=== PATIENT | male | born 1965 | race Caucasian/White ===

== ENCOUNTER 2017-12-11 09:23 | Emergency (ER) | END 2017-12-11 10:40 | disposition home or self-care (01) ==

== ENCOUNTER 2018-07-15 19:04 | Emergency (ER) | payer BC ==
[~2018-07-15] VITALS: Ht 165.1 cm; Wt 72.8 kg
[~2018-07-15 19:04] MED LIST: CYCL10TA7 PO; NAPR-985 PO; TRAM50TA2 PO
[2018-07-15 19:26] VITALS: Ht 165.1 cm; Wt 72.8 kg
[2018-07-15] MEDS ORDERED: SOD CHLORIDE 0.9% 1,000 ML IV STA (20:54)
[2018-07-15] MEDS ORDERED: FAMOTIDINE 20 MG INJ IV STA (20:54)
[2018-07-15] MEDS ORDERED: LIDOCAINE/MYLANTA 40 ML BTL PO STA (20:54)
[2018-07-15] MEDS ORDERED: ONDANSETRON 4 MG INJ IV STA (20:54)
[2018-07-15] MEDS ORDERED: morphine 2 MG INJ IV STA (20:54)
--- NOTE | 2018-07-15 21:03 | ERD ---
ER Documentation Chief Complaint Chief Complaint epigastric pain X 2 hrs, less when drinks water HPI This is a 53-year-old male presents ED with complaints of epigastric abdominal pain that is been present for the past 3 weeks. Patient states the pain has been off and states that it worsened 2 hours prior to arrival in the emergency department. Patient states that the pain waxes and wanes in severity and ranges from a 6 out of 10 to a 9 out of 10. Patient describes the pain as a stabbing burning sensation. Patient states that the pain is worsened with eating. Patient states that he recently saw his primary care physician for the same complaints over the past few weeks and has an appointment to follow-up tomorrow. Denies fever, chills, nausea, vomiting, diarrhea, constipation, hematemesis, hemoptysis, melena, hematochezia, dysuria, hematuria and all other symptoms. No known drug allergies. Denies chest pain shortness of breath. ROS All systems reviewed and are negative except as per history of present illness. Medications Home Meds Active Scripts Cyclobenzaprine Hcl* (Cyclobenzaprine Hcl*) 10 Mg Tablet, 10 MG PO QHS, #7 TAB Prov:NARDA CROWE PA-C 12/11/17 Naproxen* (Naprosyn*) 500 Mg Tablet, 500 MG PO BID PRN for PAIN AND/OR INFLAMMATION, #30 TAB Prov:NARDA CROWE PA-C 12/11/17 Tramadol HCl (Tramadol HCl) 50 Mg Tablet, 50 MG PO Q6 PRN for PAIN, #20 TAB Prov:NARDA CROWE PA-C 12/11/17 Allergies Allergies: Coded Allergies: No Known Allergy (Unverified , 12/11/17) PMhx/Soc Medical and Surgical Hx: pt denies Medical Hx, pt denies Surgical Hx History of Surgery: No Anesthesia Reaction: No Hx Neurological Disorder: No Hx Respiratory Disorders: No Hx Cardiac Disorders: No Hx Psychiatric Problems: No Hx Miscellaneous Medical Probl: No Hx Alcohol Use: No Hx Substance Use: No Hx Tobacco Use: No Smoking Status: Never smoker FmHx Family History: No diabetes Physical Exam Vitals Vital Signs Date Temp Pulse Resp B/P (MAP) Pulse Ox O2 O2 Flow FiO2 Time Delivery Rate 07/15/18 98.4 89 18 134/72 99 19:26 (92) Physical Exam Physical Exam Vitals signs: Reviewed by me. General: Well developed, well nourished, in no acute distress. Patient is awake and alert. Head: Normocephalic, atraumatic. Eyes: Normal conjunctiva, Pupils PERRLA, EOM intact grossly ENT: Pharynx is clear, Moist mucous membranes, external ears, nose and mouth normal Neck: Supple, no masses, lymphadenopathy or JVD Respiratory: Clear to auscultation bilaterally with no wheezing, rhonchi, rales, no distress Cardiovascular: RRR, no murmurs, rubs, or gallops Abdominal: Soft, nondistended, no peritoneal signs, no rigidity, no surgical abdomen, bowel sounds present all 4 quadrants, mild tenderness palpation in the epigastric and right upper quadrant regions, nontender to palpation all other quadrants, no rebound tenderness, murphys sign neg Neurologic: Alert and oriented, moving all extremities, normal speech, no focal weakness, no cerebellar signs. Normal mentation Skin: warm and dry, No rash Psych: Normal mood Result Diagram: 07/15/18201807/15/18 2019 Results 24 hrs Laboratory Tests Test 07/15/18 20:19 White Blood Count 10.6 10^3/ul Red Blood Count 5.07 10^6/ul Hemoglobin 15.6 g/dl Hematocrit 43.9 % Mean Corpuscular Volume 86.6 fl Mean Corpuscular Hemoglobin 30.8 pg Mean Corpuscular Hemoglobin Concent 35.5 g/dl Red Cell Distribution Width 12.9 % Platelet Count 224 10^3/UL Mean Platelet Volume 10.8 fl Immature Granulocytes % 0.300 % Neutrophils % 65.9 % Lymphocytes % 20.2 % Monocytes % 7.2 % Eosinophils % 6.1 % Basophils % 0.3 % Nucleated Red Blood Cells % 0.0 /100WBC Immature Granulocytes # 0.030 10^3/ul Neutrophils # 7.0 10^3/ul Lymphocytes # 2.1 10^3/ul Monocytes # 0.8 10^3/ul Eosinophils # 0.7 10^3/ul Basophils # 0.0 10^3/ul Nucleated Red Blood Cells # 0.0 10^3/ul Urine Color STRAW Urine Clarity CLEAR Urine pH 6.0 Urine Specific Sutter 1.006 Urine Ketones NEGATIVE mg/dL Urine Nitrite NEGATIVE mg/dL Urine Bilirubin NEGATIVE mg/dL Urine Urobilinogen NEGATIVE mg/dL Urine Leukocyte Esterase NEGATIVE Ivy/ul Urine Hemoglobin NEGATIVE mg/dL Urine Glucose NEGATIVE mg/dL Urine Total Protein NEGATIVE mg/dl Sodium Level 140 mmol/L Potassium Level 4.4 mmol/L Chloride Level 103 mmol/L Carbon Dioxide Level 25 mmol/L Anion Gap 12 Blood Urea Nitrogen 18 mg/dl Creatinine 0.81 mg/dl Est Glomerular Filtrat Rate mL/min > 60 mL/min Glucose Level 91 mg/dl Calcium Level 9.1 mg/dl Total Bilirubin 0.1 mg/dl Direct Bilirubin 0.00 mg/dl Indirect Bilirubin 0.1 mg/dl Aspartate Amino Transf (AST/SGOT) 48 IU/L Alanine Aminotransferase (ALT/SGPT) 20 IU/L Alkaline Phosphatase 99 IU/L Troponin I < 0.012 ng/ml Total Protein 8.9 g/dl Albumin 4.7 g/dl Globulin 4.20 g/dl Albumin/Globulin Ratio 1.11 Lipase 112 U/L Current Medications Medications Dose Sig/Sugey Start Time Status Last (Trade) Ordered Route PRN Stop Time Admin Dose Reason Admin Sodium 1,000 ml @ Q1H STAT 07/15/18 DC 07/15/18 Chloride 1,000 mls/hr IV 20:54 07/15/18 21:16 21:53 Morphine 6 mg ONCE STAT 07/15/18 DC Sulfate IV 20:54 07/15/18 (morphine) 21:06 Ondansetron 4 mg ONCE STAT 07/15/18 DC HCl (Zofran IV 20:54 07/15/18 Inj) 21:06 Famotidine 20 mg ONCE STAT 07/15/18 DC 07/15/18 (Pepcid Iv) IV 20:54 07/15/18 21:16 21:00 40 ml ONCE STAT 07/15/18 DC 07/15/18 Miscellaneous PO 20:54 07/15/18 21:16 Medication 21:00 (Gi Cocktail (2)) 1,000 mg ONCE STAT 07/15/18 DC 07/15/18 Acetaminophen PO 21:05 07/15/18 21:16 (Tylenol 21:06 Tab) Procedures/MDM EKG, MONITORS, & DIAGNOSTIC IMAGING: EKG read by indio: Rate/Rhythm: Regular rate and rhythm at a rate of 67 Intervals: Normal Impression: No evidence of ischemia or arrhythmia No ST elevation, no peak T waves, no widened QRS, no [place] interval prolongation, no QT interval prolongation [place] [id number] Radiology Main Line: [phone] DIAGNOSTIC IMAGING REPORT Patient: LAURIE JACOBS : 1965 Age: 53 Sex: M MR #: [id number] DOS: 07/15/182053 Ordering MD: HOLLY TELLEZ PA-C Location: [facility] Room/Bed: Preliminary Report PROCEDURE: US Abdomen (right upper quadrant). CLINICAL INDICATION: Abdominal pain. TECHNIQUE: Multiple real-time longitudinal and transverse images of the right upper quadrant of the abdomen were acquired utilizing a curved array transducer. Images were reviewed on a high-resolution PACS workstation. COMPARISON: None FINDINGS: The liver is normal in size and echogenicity without focal mass or intrahepatic biliary dilatation. The gallbladder is normal. There is no pericholecystic fl uid or gallbladder wall thickening or gallstones. No intra or extrahepatic biliary dilatation is seen. The common bile duct measures 3.8 mm in maximal dimension. The visualized portions of the pancreas are unremarkable with obscuration of the tail of the pancreas. No free fluid is identified. The right kidney measures 9.9 cm in length. There is normal echogenicity within the right kidney. There is no perinephric fluid collection. No hydronephrosis, mass, or calculus is seen. IMPRESSION: 1. Unremarkable right upper quadrant ultrasound. RPTAT: HFN .Sanchez Kwok MD, MD Date Time Electronically viewed and signed by .Sanchez Kwok MD, MD on 07/15/2018 22:45 .N/ CC: HOLLY TELLEZ PA-C [id number] LAB INTERPRETATION: CBC shows no evidence of hemorrhage or infection CMP:no e/o severe acidosis, alkalosis, renal failure, diabetic ketoacidosis, Liver function test shows no evidence of acute biliary or hepatic dysfunction Lipase shows no evidence of acute pancreatitis Cardiac biomarkers show no evidence of acute myocardial injury or coronary ischemia ER COURSE: The patient was given IV normal saline, Pepcid, and GI cocktail The medication was well tolerated and the patient reports improvement in symptoms. The patient was stable throughout ED course. I kept the patient and/or family informed of laboratory and diagnostic imaging results throughout the emergency room course. The patient was promptly evaluated and a treatment plan was devised based on H&P and other data. This plan was discussed with the patient who agreed and had no further questions or concerns prior to discharge. MEDICAL DECISION MAKING: This is a 53-year-old male presents ED with epigastric/upper abdominal pain times 3 weeks. Patient states that the pain is worsened today. Male patient presenting with abdominal pain. Considered causes of abdominal pain that are not gender-specific (e.g., appendicitis, volvulus, small bowel obstruction, mesent alondra adenitis, acute cholecystitis/choledocholithiasis, AAA and other biliary pathology, etc.) as well as male-specific causes (testicular torsion, epididymitis, orchitis, etc.). Patient well-appearing with normal vital signs. Abdomen benign on multiple repeat exams. Laboratory testing and imaging here reviewed and normal. Given location of abdominal pain in the epigastric region this likely could be GERD, gastritis, or gastric ulcer. Patient was advised to follow-up with GI. Patient given copies of all imaging and lab work done in the emergency department today. No evidence of acute coronary syndrome, pancreatitis, cholecystitis, small bowel obstruction, perforated viscus, appendicitis, among others. Patient given strict return precautions for worsening pain, inability to eat/drink, fevers (temperature over 100.4F), or other concerns. Patient instructed to follow up with his primary doctor and is agreeable; all questions were answered. Repeat abdominal exam in 12 hours. Pt agrees w tx plan and understands strict return precautions. DISPOSITION PLAN: We discussed follow up with the patient's primary care doctor within 24 to 48 hours. Patient counseled regarding my diagnostic impression and care plan. Prior to discharge all questions answered. Pt agrees with treatment plan and understands strict return precautions. Precautionary instructions provided including instructions to return to the ER if not improving or for any worsening or changing symptoms or concerns. SPECIALIST FOLLOW UP RECOMMENDED: GI Patient has been advised to follow up with primary care in 1-2 days. Disclaimer: Inadvertent spelling and grammatical errors are likely due to EHR/dictation software use and do not reflect on the overall quality of patient care. Also, please note that the electronic time recorded on this note does not necessarily reflect the actual time of the patient encounter. Blood Pressure Assessment: Patient's blood pressure was elevated (>120/80) but appears stable without evidence of hypertension emergency or urgency. The patient was counseled about the risks of hypertension and urged to pursue outpatient monitoring and therapy within a week with their primary care physician. Departure Diagnosis: Primary Impression: Abdominal pain Abdominal location: upper abdomen, unspecified Qualified Codes: R10.10 - Upper abdominal pain, unspecified Condition: Stable Patient Instructions: Epigastric Pain (Uncertain Cause), Gastritis Vs. Ulcer, Gerd (Adult) Referrals: TAYLOR MILLER MD,KATY CASAS,DELICIA SHAH,PARAMJIT JERONIMO,GONZALES PHELPS,IRENA OCONNOR,GAURAV Stubbs [facility] Additional Instructions: Patient advised to follow-up with GI specialist. Patient advised to return to the ED immediately for new or worsening symptoms. Patient advised to follow up with primary care provider in the next 24-48 hours. Patient verbalized understanding and agrees with treatment plan and course of action. If patient has no primary care they may follow up with one of the community clinics listed on the following page or one of the options listed below [facility] + [address] [address] or [facility] [address] [place] [address] or [facility] [address] [place] [address] HOLLY TELLEZ PA-C Jul 15, 2018 21:03
[2018-07-15] MEDS ORDERED: ACETAMINOPHEN 500 MG TAB PO STA (21:05)
[2018-07-15] MEDS ORDERED: FAMO-96 PO (22:59)
[2018-07-15] MEDS ORDERED: HYDR-4011 PO (22:59)
[2018-07-15 23:23] VITALS: BP 106/54; PULSE 61; RESP 16
== END 2018-07-15 23:23 | disposition home or self-care (01) ==
LOC: FTE 19:04
DX: R10.13 Epigastric pain (principal)
CPT/HCPCS: 36415; 76705; 80053; 81003; 83690; 84484; 85025; 93005; 96374; J7030; Z7502; Z7610; J2270; J2405